=== PATIENT | male | born 1995 | race African-American/Black ===

== ENCOUNTER 2016-08-02 20:19 | Emergency (ER) | payer SELFPAY ==
[~2016-08-02] VITALS: Ht 172.7 cm; Wt 78.0 kg
[2016-08-02 20:21] VITALS: BP 138/71; PULSE 89; RESP 18; TEMP 98.5; O2SAT 98
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
[2016-08-02] MEDS ORDERED: PROPOFOL 200 MG/20 ML AMP IV ONE (20:45)
[2016-08-02 20:52] VITALS: BP 161/93; PULSE 96; RESP 18; O2SAT 100
--- NOTE | 2016-08-02 21:00 | RADRPT ---
EXAM DATE/TIME: 08/02/2016 20:45 [facility] COMPARISON: No previous studies available for comparison. INDICATIONS : Shoulder dislocation. MEDICAL HISTORY : None. SURGICAL HISTORY : None. ENCOUNTER: Initial ACUITY: 1 day PAIN SCORE: 5/10 LOCATION: Left shoulder FINDINGS: Left glenohumeral joint is dislocated anteriorly. I don't see a displaced fracture. CONCLUSION: Acutely dislocated glenohumeral joint. No displaced fracture seen. Juan Daniel Mckeon MD on August 02, 2016 at 20:58 Board Certified Radiologist. This report was verified electronically.
[2016-08-02] MEDS ORDERED: MORPHINE SULFATE 4 MG/ML INJ IV PUSH ONE (21:30)
[2016-08-02] MEDS ORDERED: ONDANSETRON HCL 4 MG/2 ML VIAL IV PUSH ONE (21:30)
[2016-08-02] MEDS ORDERED: SODIUM CHLOR 0.9% 1000 ML INJ 1,000 ML IV ONE (21:30)
[2016-08-02 22:00] VITALS: O2SAT 100
--- NOTE | 2016-08-02 22:41 | RADRPT ---
EXAM DATE/TIME: 08/02/2016 22:19 [facility] COMPARISON: SHOULDER LEFT COMPLETE (>2VWS), August 02, 2016, 20:45. INDICATIONS : Post reduction left shoulder. MEDICAL HISTORY : None. SURGICAL HISTORY : None. ENCOUNTER: Initial ACUITY: 1 day PAIN SCORE: 0/10 LOCATION: Left shoulder FINDINGS: Glenohumeral joint dislocation seen earlier today has been reduced. Alignment is normal. There is a H ill-Sachs deformity of the humeral head. No definite bony [place]. I don't see a displaced fracture. CONCLUSION: Internal reduction of the left glenohumeral joint. Hill-Sachs lesion of the humeral head. No displace d fracture seen. Juan Daniel Mckeon MD on August 02, 2016 at 22:38 Board Certified Radiologist. This report was verified electronically.
[2016-08-02] MEDS ORDERED: EC-N500T PO (22:47)
== END 2016-08-02 23:28 | disposition home or self-care (01) ==
LOC: NEPE 20:19
DX: M24.412 Recurrent dislocation, left shoulder (principal); J45.909 Unspecified asthma, uncomplicated; X58.XXXA Exposure to other specified factors, initial encounter; Y93.83 Activity, rough housing and horseplay; Y92.9 Unspecified place or not applicable
CPT/HCPCS: 23650; 73030; 96360; 99152; 99285; J7030

== ENCOUNTER 2017-03-28 06:54 | Emergency (ER) | payer SELFPAY ==
[~2017-03-28] VITALS: Ht 172.7 cm; Wt 82.0 kg
[~2017-03-28 06:54] MED LIST: NAPR-810 PO
[2017-03-28 06:57] VITALS: BP 143/85; PULSE 83; RESP 16; TEMP 97.6; O2SAT 100
--- NOTE | 2017-03-28 07:20 | PD ---
HPI Chief Complaint: Cold / Flu Symptoms Time Seen by Provider: 07:07 Travel History International Travel<30 days: No Contact w/Intl Traveler<30days: No Traveled to known affect area: No History of Present Illness HPI The patient is a 22-year-old Yasmeen male who presents emergency department for cough and cold symptoms. The patient states his initial symptoms started one week ago with a dry nonproductive cough. He complains of anterior chest wall pain with coughing and deep inspiration. He does note some intermittent fevers, chills, and sweats. He also complains of nausea, vomiting , and diarrhea. He does note intermittent abdominal cramping. Symptoms have been ongoing for 1 week, there are no current alleviating or exacerbating factors. He denies any dysuria. He did not receive an influenza vaccination this year. He denies any sick contacts at home. He has a remote history of tobacco use. PFSH Past Medical History ADHD: No Asthma: Yes (as a child) Depression: Yes Cancer: No Cardiovascular Problems: No Diabetes: No Diminished Hearing: No Endocrine: No Gastrointestinal Disorders: No Genitourinary: No Immune Disorder: No Implanted Vascular Access Dvce: No Musculoskeletal: Yes (MULTIPLE LEFT SHOULDER DISLOCATIONS) Neurologic: No Psychiatric: No Reproductive: No Respiratory: Yes Immunizations Current: Yes Migraines: No Seizures: No Thyroid Disease: No Ulcer: No Influenza Vaccination: No Past Surgical History Appendectomy: No Cholecystectomy: No Other Surgery: Yes (left knee drained ) Social History Alcohol Use: No Tobacco Use: No Substance Use: No Allergies-Medications (Allergen,Severity, Reaction): Coded Allergies: peanut (Unverified Allergy, Mild, 03/28/17) *MDRO Multi-Drug Resistant Organism (Unverified Allergy, Unknown, 03/28/17) MRSA amoxicillin (Unverified Allergy, Unknown, 03/28/17) clavulanic acid (Unverified Allergy, Unknown, 03/28/17) Reported Meds & Prescriptions Reported Meds & Active Scripts Active No Active Prescriptions or Reported Medications Review of Systems Except as stated in HPI: all other systems reviewed are Neg General / Constitutional: Positive: Fever, Chills HENT: Positive: Headaches, Congestion, No: Sore Throat Cardiovascular: Positive: Chest Pain or Discomfort (with coughing and inspiration) Respiratory: Positive: Cough, Pleuritic Pain Gastrointestinal: Positive: Nausea, Vomiting, Diarrhea, No: Abdominal Pain Genitourinary: No: Dysuria Musculoskeletal: Positive: Myalgias Skin: No Rash Physical Exam Narrative GENERAL: Awake, alert, pleasant 22-year-old male who appears his stated age and is in no acute respiratory distress. SKIN: Focused skin assessment warm/dry. HEAD: Atraumatic. Normocephalic. EYES: Pupils equal and round. No scleral icterus. No injection or drainage. ENT: No nasal bleeding or discharge. Cobblestoning but no exudate. Tenderness over the frontal sinuses and x-rays sinuses bilateral. NECK: Trachea midline. No JVD. No meningeal signs. CARDIOVASCULAR: Regular rate and rhythm. No murmur appreciated. RESPIRATORY: No accessory muscle use. Clear to auscultation. Breath sounds equal bilaterally. GASTROINTESTINAL: Abdomen soft, non-tender, nondistended. No rebound tenderness. No guarding or rigidity. MUSCULOSKELETAL: No obvious deformities. No clubbing. No cyanosis. No edema. NEUROLOGICAL: Awake and alert. No obvious cranial nerve deficits. Motor grossly within normal limits. Normal speech. PSYCHIATRIC: Appropriate mood and affect; insight and judgment normal. Data Data Last Documented VS Vital Signs Date Time Temp Pulse Resp B/P (MAP) Pulse Ox O2 Delivery O2 Flow Rate FiO2 03/28/17 06:57 97.6 83 16 143/85 (104) 100 Orders Orders Chest, Single Ap (03/28/17 ) Influenzae A/B Antigen (03/28/17 07:16) Ondansetron Odt (Zofran Odt) (03/28/17 07:30) MDM Medical Decision Making Medical Screen Exam Complete: Yes Emergency Medical Condition: Yes Medical Record Reviewed: Yes Interpretation(s) Last Impressions Chest X-Ray 03/28/17 0000 Signed Impressions: Service Date/Time: Tuesday, March 28, 2017 07:21 - CONCLUSION: 1. No acute cardiopulmonary disease. Curtis Panda MD Date/Time Source Procedure Growth Status 03/28/17 07:15 Nasal Aspirate Influenza Types A,B Antigen ([facility]) - Final NEGATIVE FOR FLU A AND B ANTIGEN.... Complete Differential Diagnosis Differential diagnosis includes viral syndrome, URI, pneumonia, bronchitis, sinusitis, pharyngitis, gastroenteritis. Narrative Course Chest x-ray was sent to lab. Influenza screen was sent to lab. The patient received Zofran 4 mg ODT and then a by mouth challenge. Influenza screen is negative. Chest x-rays unremarkable. The patient does have signs of sinusitis , will be placed on antihistamine the decongestion and clindamycin. He will also be prescribed Zofran as needed for nausea. Clear liquid diet and progress as tolerated. Return if symptoms worsen or progress. Diagnosis Primary Impression: Sinusitis Qualified Codes: J01.00 - Acute maxillary sinusitis, unspecified Additional Impression: Nausea and vomiting Qualified Codes: R11.2 - Nausea with vomiting, unspecified Patient Instructions: General Instructions Additional Instructions: Medications as directed. Clear liquid diet and advance as tolerated. Follow- up with her primary physician. Return if symptoms worsen or progress. Med/Other Pt SpecificInfo: Prescription(s) given Scripts Desloratadine-Pseudoephedrine 12 HR (Clarinex-D 12 HR) 2.5-120 Mg Tab 1 TAB PO BID for Allergy Management for 10 Days, #20 TAB 0 Refills Prov: Dereck Quiñones MD 03/28/17 Clindamycin (Cleocin) 150 Mg Cap 150 MG PO Q6H for Infection for 10 Days, #40 CAP 0 Refills Prov: Dereck Quiñones MD 03/28/17 Disposition: DISCHARGE HOME Condition: Stable Dereck Quiñones MD Mar 28, 2017 07:20
[2017-03-28] MEDS ORDERED: ONDANSETRON ODT 4 MG TAB PO ONE (07:30)
--- NOTE | 2017-03-28 07:42 | RADRPT ---
EXAM DATE/TIME: 03/28/2017 07:21 [facility] COMPARISON: CHEST SINGLE AP, January 09, 2015, 13:45. INDICATIONS : Short of breath, cough, pain in middle of chest, nausea, diarrhea MEDICAL HISTORY : SURGICAL HISTORY : None. ENCOUNTER: Subsequent ACUITY: 1 week PAIN SCORE: 5/10 LOCATION: Bilateral chest FINDINGS: A single view of the chest demonstrates the lungs to be symmetrically aerated without evidence of mas s, infiltrate or effusion. The cardiomediastinal contours are unremarkable. Osseous structures are intact. CONCLUSION: 1. No acute cardiopulmonary disease. Curtis Panda MD on March 28, 2017 at 7:37 Board Certified Radiologist. This report was verified electronically.
[2017-03-28] MEDS ORDERED: CLIN150 PO (09:02)
[2017-03-28] MEDS ORDERED: CLAR2.5T PO (09:02)
[2017-03-28] MEDS ORDERED: ZOFR4TAB3 SL (09:06)
== END 2017-03-28 09:55 | disposition home or self-care (01) ==
LOC: NEPC 06:54
DX: J01.00 Acute maxillary sinusitis, unspecified (principal); R11.2 Nausea with vomiting, unspecified; Z87.891 Personal history of nicotine dependence
CPT/HCPCS: 71045; 87804; 99284